=== PATIENT | male | born 1980 | race Two or more races ===

== ENCOUNTER 2022-03-16 22:15 | Emergency (ER) | payer SELFPAY ==
[~2022-03-16] VITALS: Ht 170.2 cm; Wt 155.0 kg
[2022-03-16 22:21] VITALS: BP 97/54
== END 2022-03-16 22:59 | disposition left against medical advice (07) ==
LOC: EDBD 22:15 → ER 22:23
DX: R11.2 Nausea with vomiting, unspecified (principal); R53.1 Weakness; Z53.21 Procedure and treatment not carried out due to patient leaving prior to being seen by health care provider